=== PATIENT | female | born 1970 | race Caucasian/White ===

== ENCOUNTER 2017-01-16 23:16 | Emergency (ER) | payer OTHER ==
[~2017-01-16] VITALS: Ht 162.6 cm; Wt 56.0 kg
[~2017-01-16 23:16] MED LIST: HYDR-3498 PO; METH500T PO; NAPR-688 PO; ONDA4TAB35 PO; PANT40TA3 PO
[2017-01-16 23:18] VITALS: Ht 162.6 cm; Wt 56.0 kg
--- NOTE | 2017-01-16 23:58 | ERD ---
ER Documentation Chief Complaint Date/Time DATE: 01/16/17 TIME: 23:57 Chief Complaint cough x 8 days w/ sob HPI flu like sx took Tylenol and developed adverse reaction, patient reports facial numbness, lips tingling, throat tightness, and shortness of breath. ROS All systems reviewed and are negative except as per history of present illness. Medications Home Meds Active Scripts Ondansetron Hcl* (Zofran* ODT) 4 mg -ODT Tab.disper, 4 MG PO Q6 Y for NAUSEA AND /OR VOMITING, #30 TAB Prov:JUAN WOOD MD 10/18/15 Pantoprazole* (Protonix*) 40 Mg Tablet.dr, 40 MG PO DAILY, #20 TAB Prov:JUAN WOOD MD 10/18/15 Naproxen* (Naproxen*) 500 Mg Tablet, 500 MG PO BID, #20 TAB Prov:CHING DOWNS DO 10/05/15 Methocarbamol* (Robaxin*) 500 Mg Tab, 500 MG PO Q8, #14 TAB Prov:CHING DOWNS DO 10/05/15 Hydrocodone Bit-Acetaminophen* ([place]*) 5-325 Mg Tab, 1 TAB PO Q6 Y for PAIN, # 20 TAB Prov:CHING DOWNS DO 10/05/15 Allergies Allergies: Coded Allergies: No Known Drug Allergy (Verified Allergy, Unknown, 10/18/15) PMhx/Soc History of Surgery: Yes (AIRAM, X2, HYSTERECTOMY) Anesthesia Reaction: No Hx Neurological Disorder: No Hx Respiratory Disorders: No Hx Cardiac Disorders: No Hx Psychiatric Problems: Yes (anxiety) Hx Miscellaneous Medical Probl: Yes (DIVERTICULITIS) Hx Alcohol Use: No Hx Substance Use: No Hx Tobacco Use: No Smoking Status: Never smoker Physical Exam Vitals Vital Signs Date Time Temp Pulse Resp B/P Pulse Ox O2 Delivery O2 Flow Rate FiO2 01/16/17 23:18 99.4 140 20 138/78 100 Vitals stable, triage notes reviewed Physical Exam Const: Well-nourished well-hydrated obvious discomfort, panicky in no acute distress Head: Eyes: Normal Conjunctiva PERRLA, EOMI, no angioedema ENT: Normal External Ears, Nose and Mouth. Lips slightly edematous, tongue midline without edema, no angioedema. Neck: Resp: Clear to auscultation bilaterally, no rales wheezes or rhonchi Cardio: Abd: Skin: No petechiae or rashes Back: Ext: Neur: Awake and alert Psych: Normal Mood and Affect Results 24 hrs Current Medications Medications (Trade) Dose Ordered Sig/Trixie Route PRN Reason Start Time Stop Time Status Last Admin Dose Admin Diphenhydramine HCl (Benadryl) 50 mg ONCE ONCE IV 01/17/17 00:00 01/17/17 00:06 DC 01/17/17 00:22 Methylprednisolone Sodium Succinate (Solu-Medrol) 60 mg ONCE ONCE IV 01/17/17 00:00 01/17/17 00:01 Cancel Famotidine 20 mg 20 mg ONCE ONCE IV 01/17/17 00:00 01/17/17 00:06 DC 01/17/17 00:22 Sodium Chloride (NS) 1,000 ml @ 1,000 mls/hr Q1H ONCE IV 01/17/17 00:00 01/17/17 00:59 DC 01/17/17 00:21 Methylprednisolone Sodium Succinate (Solu-Medrol) 40 mg ONCE ONCE IV 01/17/17 00:30 01/17/17 00:30 DC 01/17/17 00:22 Methylprednisolone Sodium Succinate (Solu-Medrol) 40 mg ONCE ONCE IV 01/17/17 00:30 01/17/17 00:31 DC 01/17/17 01:02 Procedures/[facility] This 46-year-old female presents to emergency department today for developing anaphylactic-like symptoms after taking a half a Tylenol for flulike symptoms patient reports she has taken medication in the past, denies history of anxiety , reports facial numbness, lip swelling tingling, shortness of breath and tight sensation in throat. Patient's voice is clear, eyes are watery and she appears panicked, lips are edematous. Patient treated for a anaphylactic-like reaction with a liter of normal saline, Solu-Medrol 40, Benadryl 50, Pepcid 20 IV. Patient reassessed after 10 minutes with improvement of symptoms continues to be panicky, patient reassessed after 60 minutes with improvement of symptoms. I have little clinical suspicion for anaphylactic shock with airway compromise, pneumonia, pulmonary embolism, CVA, or acute MA. Symptoms are likely exacerbated by anxiety. Patient will be discharged home with Benadryl, instructed discontinue use of acetaminophen, use Motrin for fever reduction. Instructed to return to emergency department if symptoms fail to improve as anticipated, shortness of breath, lip swelling tongue swelling difficulty talking or swallowing saliva. Patient is stable with no new complaints during ER course, clinically there is no current evidence to suggest meningitis, sepsis, acute abdomen, acute coronary syndromes, pulmonary embolism or any other emergent condition appearing to require further evaluation or hospitalization. I feel the patient is stable for discharge at this time. I have discussed results, examination findings, the treatment plan with the patient and family present prior to discharge. Indications for emergent reevaluation, side effects of medication were also discussed. All questions were answered. Patient verbalizes understanding and agrees with plan of care. Departure Diagnosis: Primary Impression: Allergic reaction Encounter type: initial encounter Qualified Code: T78.40XA - Allergic reaction, initial encounter Condition: Good Patient Instructions: Allergic Reaction, Drug Additional Instructions: Consider yourself allergic to acetaminophen, use only ibuprofen, Advil, Aleve, or Motrin for body aches headache fever reduction. Thank you for for coming to [facility] for your care today. Please ask your nurse or provider if you have questions about your care today and do not leave until all your questions have been answered. Please use any medications given as directed and follow-up with your doctor (or the doctor you were referred to) in the next 2-3 days. If you do not have a primary care doctor you may follow up at the [facility] (listed below). You may also use motrin and tylenol as needed for fever and/or pain unless instructed otherwise by your provider or nurse. Indications for more urgent follow-up have been discussed, but you may return to the Emergency Department at ANY time for any worrisome or worsening symptoms. If you have abdominal pain, please know that no test or exam you received is perfect and you should follow up within 8 hours for continued pain. If you had any imaging studies today, such as an X-Ray or CT Scan, these studies will be reviewed later by a radiologist. You will be called if there are important findings that were not identified today, so make sure the contact information you provided at registration is correct. If you received any narcotic pain control medicine today, such as Vicodin, Morphine or Dilaudid, your coordination and judgment may be affected for a number of hours. Please do not drive or operate heavy machinery, and you may want someone to assist you at home. If you were given a prescription for narcotic medication, be aware that it is very addictive- use sparingly and only if necessary. GALILEO LONG Jan 16, 2017 23:57
[2017-01-17] MEDS ORDERED: FAMOTIDINE 20 MG INJ IV ONE
[2017-01-17] MEDS ORDERED: SOD CHLORIDE 0.9% 1,000 ML IV ONE
[2017-01-17] MEDS ORDERED: DIPHENHYDRAMINE 50 MG INJ IV ONE
[2017-01-17] MEDS ORDERED: METHYLPREDNISOLONE 40 MG INJ IV ONE (00:30)
[2017-01-17] MEDS ORDERED: METHYLPREDNISOLONE 125 MG INJ IV ONE ×2 (00:30)
[2017-01-17] MEDS ORDERED: BEN50 PO (01:20)
[2017-01-17 01:39] VITALS: BP 103/54; PULSE 106; RESP 18; TEMP 97.5
== END 2017-01-17 01:42 | disposition home or self-care (01) ==
LOC: FTE 23:16
DX: R05 Cough (principal)
CPT/HCPCS: 96374; 96375; 96376; J1200; J2920; J7030; Z7502; Z7610; J2930

== ENCOUNTER 2018-04-12 11:51 | Emergency (ER) | END 2018-04-12 12:34 | disposition home or self-care (01) ==